=== PATIENT | female | born 1980 | race African-American/Black ===

== ENCOUNTER 2017-05-08 10:09 | Emergency (ER) | payer SELFPAY ==
--- NOTE | 2017-05-08 11:18 | ER ---
Nurse's Notes [facility] Name: Megan Feliz Age: 37 yrs Sex: Female : 1980 Arrival Date: 05/08/2017 Time: 10:14 Bed 11 Private MD: Diagnosis: Seasonal Allergies, Allergic rhinitis, Post nasal drip. Presentation: 05/08 10:18 Presenting complaint: Patient states: "I either has pneumonia or an upper respiratory lk1 infection. I have a headache and a cough that is making my chest hurt". Transition of care: patient was not received from another setting of care. Onset of symptoms was May 05, 2017. Care prior to arrival: None. 10:18 Method Of Arrival: Ambulatory lk1 10:18 Acuity: GUSTAVO 3 lk1 10:20 Note Patient on phone during triage, despite asking her to end phone call. lk1 Triage Assessment: 10:21 General: Appears in no apparent distress. Behavior is calm, cooperative, appropriate lk1 for age. Pain: Complains of pain in mid-sternal area Pain currently is 8 out of 10 on a pain scale. Respiratory: Reports shortness of breath cough that is Airway is patent Respiratory effort is even, unlabored, Respiratory pattern is regular, symmetrical, Onset: The symptoms/episode began/occurred 3 days ago, the patient has mild shortness of breath. 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 - Social history:: Smoking status: Patient uses tobacco products, smokes one-half pack cigarettes per day. Screenin:27 Abuse screen: Denies threats or abuse. Denies injuries from another. Nutritional aj1 screening: No deficits noted. Tuberculosis screening: No symptoms or risk factors identified. 11:32 Fall Risk None identified. aj1 Assessment: 10:27 General: Appears in no apparent distress. uncomfortable, Behavior is calm, cooperative, aj1 appropriate for age. Pain: Complains of pain in scalp and back Pain does not radiate. Pain currently is 5 out of 10 on a pain scale. Quality of pain is described as aching. Neuro: Level of Consciousness is awake, alert, obeys commands, Oriented to person, place, time, situation, Speech is normal, Facial symmetry appears normal. Cardiovascular: Heart tones S1 S2 present Patient's skin is warm and dry. Rhythm is regular. Respiratory: Reports shortness of breath cough that is productive, persistent Airway is patent Respiratory effort is even, unlabored, Respiratory pattern is regular, symmetrical, Breath sounds are clear bilaterally. GI: No signs and/or symptoms were reported involving the gastrointestinal system. : No signs and/or symptoms were reported regarding the genitourinary system. EENT: Reports nasal congestion nasal discharge sinus congestion. Derm: No signs and/or symptoms reported regarding the dermatologic system. Skin is normal. Musculoskeletal: No signs and/or symptoms reported regarding the musculoskeletal system. Circulation, motion, and sensation intact. 11:31 Reassessment: Patient appears in no apparent distress at this time. No changes from aj1 previously documented assessment. Patient and/or family updated on plan of care and expected duration. Pain level reassessed. Patient is alert, oriented x 3, equal unlabored respirations, skin warm/dry/pink. Vital Signs: 10:21 BP 115 / 79; Pulse 79; Resp 14; Temp 98.7(O); Pulse Ox 99% on R/A; Weight 77.11 kg (R); lk1 Height 5 ft. 1 in. (154.94 cm) (R); Pain 8/10; 11:31 BP 108 / 62; Pulse 83; Resp 16; Pulse Ox 99% on R/A; aj1 10:21 Body Mass Index 32.12 (77.11 kg, 154.94 cm) lk1 ED Course: 10:14 Patient arrived in ED. mr 10:19 Triage completed. lk1 10:23 Arm band placed on right wrist. lk1 10:24 Chari Stearns, SHAHAB is Primary Nurse. aj1 10:26 Joel Che MD is Attending Physician. ps1 10:27 Patient has correct armband on for positive identification. Call light in reach. aj1 10:27 No provider procedures requiring assistance completed. aj1 11:32 Patient did not have IV access during this emergency room visit. aj1 Administered Medications: 11:32 Drug: Decadron - Dexamethasone 10 mg {Note: Given PO per orders by Dr. Che.} Route: aj1 IVP; Site: Other; 11:32 Follow up: Response: No adverse reaction aj1 Outcome: 11:18 Discharge ordered by . ps1 11:32 Discharged to home ambulatory. aj1 11:32 Condition: good 11:32 Discharge instructions given to patient, Instructed on discharge instructions, follow up and referral plans. medication usage, Demonstrated understanding of instructions, follow-up care, medications, Prescriptions given X 3. 11:33 Patient left the ED. aj1 Signatures: Chari Stearns, RN RN aj1 Rachana Nguyen Leah, RN RN lk1 Joel Che MD MD ps1
--- NOTE | 2017-05-08 11:18 | EDPHYS ---
Physician Documentation [facility] Name: Megan Feliz Age: 37 yrs Sex: Female : 1980 Arrival Date: 05/08/2017 Time: 10:14 Bed 11 Private MD: ED Physician Joel Che HPI: 05/08 11:13 This 37 yrs old Black Female presents to ER via Ambulatory with complaints of Cough. ps1 11:13 The patient or guardian reports cough, that is constant, difficulty breathing, Hx of ps1 asthma and eczema, seasonal allergies. High pollen count and symptoms have maria eugenia going on for the last couple of weeks with seasonal changes. Has taken 30 mg of Claritin a day and Sudafed. Recently stopped Sudafed and now feels as though the cough has moved from her sinuses down into her lungs. . 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 - Social history:: Smoking status: Patient uses tobacco products, smokes one-half pack cigarettes per day. ROS: 11:13 Constitutional: Negative for fever, chills, and weight loss, Eyes: Negative for injury, ps1 pain, redness, and discharge. 11:13 Cardiovascular: Negative for chest pain, palpitations, and edema, Abdomen/GI: Negative for abdominal pain, nausea, vomiting, diarrhea, and constipation, Back: Negative for injury and pain, : Negative for injury, bleeding, discharge, and swelling, MS/Extremity: Negative for injury and deformity, Skin: Negative for injury, rash, and discoloration, Neuro: Negative for headache, weakness, numbness, tingling, and seizure. 11:13 ENT: Positive for sinus congestion, post nasal drip. 11:13 Respiratory: Positive for cough, with white sputum. Exam: 11:16 Constitutional: This is a well developed, well nourished patient who is awake, alert, ps1 and in no acute distress. Head/Face: Normocephalic, atraumatic. Eyes: Pupils equal round and reactive to light, extra-ocular motions intact. Lids and lashes normal. Conjunctiva and sclera are non-icteric and not injected. ENT: Nares patent. No nasal discharge, no septal abnormalities noted. Tympanic membranes are normal and external auditory canals are clear. Oropharynx with no redness, swelling, or masses, exudates, or evidence of obstruction, uvula midline. Mucous membranes moist. Neck: Trachea midline, no thyromegaly or masses palpated, and no cervical lymphadenopathy. Supple, full range of motion without nuchal rigidity, or vertebral point tenderness. No Meningismus. Chest/axilla: Normal chest wall appearance and motion. Nontender with no deformity. No lesions are appreciated. Cardiovascular: Regular rate and rhythm. No gallops, murmurs, or rubs. Normal PMI, no JVD. No pulse deficits. Respiratory: Lungs have equal breath sounds bilaterally, clear to auscultation and percussion. No rales, rhonchi or wheezes noted. No increased work of breathing, no retractions or nasal flaring. Abdomen/GI: Soft, non-tender, with normal bowel sounds. No distension or tympany. No guarding or rebound. No evidence of tenderness throughout. Skin: Warm, dry with normal turgor. Normal color with no rashes, no lesions, and no evidence of cellulitis. Neuro: Awake and alert, GCS 15, oriented to person, place, time, and situation. Cranial nerves II-XII grossly intact. Sensory grossly intact. Vital Signs: 10:21 BP 115 / 79; Pulse 79; Resp 14; Temp 98.7(O); Pulse Ox 99% on R/A; Weight 77.11 kg (R); lk1 Height 5 ft. 1 in. (154.94 cm) (R); Pain 8/10; 11:31 BP 108 / 62; Pulse 83; Resp 16; Pulse Ox 99% on R/A; aj1 10:21 Body Mass Index 32.12 (77.11 kg, 154.94 cm) lk1 MDM: 11:12 Patient medically screened. ps1 11:16 Data reviewed: vital signs, nurses notes. ps1 Administered Medications: 11:32 Drug: Decadron - Dexamethasone 10 mg {Note: Given PO per orders by Dr. Che.} Route: aj1 IVP; Site: Other; 11:32 Follow up: Response: No adverse reaction aj1 Disposition: 03/27/18 11:18 Discharged to Home. Impression: Seasonal Allergies, Allergic rhinitis, Post nasal drip. . - Condition is Stable. - Discharge Instructions: Allergic Rhinitis, Asthma, Acute Bronchospasm. - Prescriptions for chlorpheniramine maleate 4 mg Oral Tablet - take 1 tablet by ORAL route every 4 hours As needed; 60 tablet. Medrol (Eduardo) 4 mg Oral Tablets, Dose Pack - take 1 tablet by ORAL route as directed - follow package instructions; 1 packet. Albuterol Sulfate 90 mcg/actuation - inhale 1-2 puff by INHALATION route every 4-6 hours; 1 Inhaler. - Work release form, Medication Reconciliation Form, Thank You Letter, Antibiotic Education, Prescription Opioid Use form. - Follow up: Private Physician; When: As needed; Reason: Recheck today's complaints, Continuance of care, Re-evaluation by your physician. Follow up: Emergency Department; When: As needed; Reason: Fever > 102 F, Trouble breathing, Worsening of condition. - Problem is an acute exacerbation. - Symptoms have worsened. Signatures: Chari Stearns, RN RN aj1 Madisyn Silverio RN RN lk1 Joel Che MD MD ps1
[2017-05-08] MEDS ORDERED: DEXAMETHASONE 4 MG/ML VIAL ONE (11:42)
== END 2017-05-08 11:33 | disposition home or self-care (01) ==
LOC: ER 10:09
DX: J30.2 Other seasonal allergic rhinitis; Z88.1 Allergy status to other antibiotic agents; Z88.0 Allergy status to penicillin; F17.210 Nicotine dependence, cigarettes, uncomplicated; R09.82 Postnasal drip
CPT/HCPCS: 96374; 99283